=== PATIENT | female | born 1995 | race Caucasian/White ===

== ENCOUNTER → 2018-01-07 | Outpatient (CLI) | payer BC | END | disposition home or self-care (01) | LOC: LAB SHORT 12:45 → LAB 12:45 | PROVIDERS: Nurse Practitioner | DX: Z01.419 Encounter for gynecological examination (general) (routine) without abnormal findings (principal) | CPT/HCPCS: G0145 ==

== ENCOUNTER → 2020-01-22 | Outpatient (CLI) | payer BC, OTHER | END | disposition home or self-care (01) | LOC: LAB 16:19 → LAB SHORT 16:19 | DX: Z34.03 Encounter for supervision of normal first pregnancy, third trimester (principal); Z3A.35 35 weeks gestation of pregnancy | CPT/HCPCS: 87081; 87653 ==

== ENCOUNTER 2020-03-13 16:20 | Emergency (ER) | payer BC, OTHER ==
[~2020-03-13 16:20] MED LIST: PRENATAL TABLE1 EAC2 PO
[2020-03-13 16:46] LABS: BASOPHILS ABSOLUTE AUTO 0.09 K/mm3 (0.00-0.23); BASOPHILS PERCENT AUTO 1 % (0-2); EOSINOPHILS ABSOLUTE AUTO 0.08 K/mm3 (0.00-0.68); EOSINOPHILS PERCENT AUTO 1 % (0-6); Hematocrit 33.9 % (33.0-51.0); Hemoglobin 9.9 g/dL (11.5-16.0); IMMATURE GRAN ABSOLUTE AUTO 0.06 K/mm3 (0.00-0.10); IMMATURE GRAN PERCENT AUTO 0 % (0-1); LYMPHOCYTES ABSOLUTE AUTO 5.38 K/mm3 (0.84-5.20); LYMPHOCYTES PERCENT AUTO 34 % (21-46); MONOCYTES ABSOLUTE AUTO 1.31 K/mm3 (0.16-1.47); MONOCYTES PERCENT AUTO 8 % (4-13); Mean Corpuscular HGB 28.5 pg (26.0-34.0); Mean Corpuscular HGB Conc 29.2 g/dL (31.5-36.5); Mean Corpuscular Volume 98 fL (80-100); Mean Platelet Volume 8.7 fL (9.1-12.4); NEUTROPHILS PERCENT AUTO 56 % (41-73); Platelet Count 551 K/mm3 (150-400); RDW Coefficient Variation 12.7 % (11.7-14.2); RDW Standard Deviation 45.5 fL (35.1-46.3); Red Blood Cell Count 3.47 M/mm3 (3.80-5.20); White Blood Cell Count 15.82 K/mm3 (4.00-11.30)
[2020-03-13 16:55] LABS: Calcium, Ionized (POC) 1.07 mmol/L (1.10-1.46); Chloride (POC) 109 mmol/L (98-108); Creatinine (POC) 0.6 mg/dL (0.6-1.0); Glucose (ISTAT POC) 69 mg/dL (70-99); Hemoglobin (POC) 10.5 g/dL (12.0-16.0); Potassium (POC) 4.9 mmol/L (3.5-5.5); Sodium (POC) 139 mmol/L (135-148); Total CO2 (POC) 17 mmol/L (21-32)
[2020-03-13 16:58] LABS: PCO2 Arterial 33.7 mmHg (35-45); PO2 Arterial 188 mmHg (80-100); pH Blood Arterial 7.28 (7.35-7.45)
[2020-03-13 17:12] LABS: Alanine Aminotransfer (ALT/SGP 22 U/L (12-78); Albumin, Blood 3.6 g/dL (3.4-5.0); Alk Phos 137 U/L (50-136); Anion Gap 14 mmol/L (6-16); Aspartate Aminotrans (AST/SGOT 21 U/L (12-37); Bilirubin, Total 0.2 mg/dL (0.1-1.0); Blood Urea Nitrogen 11 mg/dL (8-24); Bun/Creatinine Ratio 15.2 (12.0-20.0); CO2, Blood 20 mmol/L (21-32); Calcium, Blood 9.1 mg/dL (8.5-10.1); Chloride, Blood 115 mmol/L (98-108); Creatinine, Blood 0.72 mg/dL (0.40-1.00); Globulin, Blood 3.6 g/dL (2.2-4.0); Glomerular Filtration Rate >60 (60-); Glucose, Blood 85 mg/dL (70-99); Potassium, Blood 4.8 mmol/L (3.5-5.5); Sodium, Blood 149 mmol/L (136-145); Total Protein, Blood 7.2 g/dL (6.4-8.2)
== END 2020-03-13 17:53 | disposition short-term general hospital (02) ==
LOC: ER 16:20
PROVIDERS: Emergency Medicine
DX: O99.355 Diseases of the nervous system complicating the puerperium (principal); G40.901 Epilepsy, unspecified, not intractable, with status epilepticus; I82.90 Acute embolism and thrombosis of unspecified vein; R06.03 Acute respiratory distress; Z91.013 Allergy to seafood
CPT/HCPCS: 31500; 36600; 51702; 70450; 80047; 80053; 82803; 82947; 85014; 85025; 85379; 94002; 94770; 96365-59; 96368; 96375-59; 99291-25; J0330; J1644; J1953; J2250; J2704; J3010; J3475; J7060

== ENCOUNTER 2020-03-22 19:16 | Emergency (ER) | payer BC, OTHER ==
[~2020-03-22] VITALS: Ht 167.6 cm; Wt 72.6 kg
[2020-03-22 20:13] LABS: BASOPHILS ABSOLUTE AUTO 0.07 K/mm3 (0.00-0.23); BASOPHILS PERCENT AUTO 1 % (0-2); EOSINOPHILS PERCENT AUTO 1 % (0-6); Hematocrit 28.7 % (33.0-51.0); Hemoglobin 8.8 g/dL (11.5-16.0); IMMATURE GRAN ABSOLUTE AUTO 0.03 K/mm3 (0.00-0.10); IMMATURE GRAN PERCENT AUTO 0 % (0-1); LYMPHOCYTES PERCENT AUTO 40 % (21-46); MONOCYTES ABSOLUTE AUTO 0.73 K/mm3 (0.16-1.47); MONOCYTES PERCENT AUTO 9 % (4-13); Mean Corpuscular HGB 27.4 pg (26.0-34.0); Mean Corpuscular HGB Conc 30.7 g/dL (31.5-36.5); Mean Corpuscular Volume 89 fL (80-100); Mean Platelet Volume 8.8 fL (9.1-12.4); NEUTROPHILS ABSOLUTE AUTO 4.01 K/mm3 (1.96-9.15); NEUTROPHILS PERCENT AUTO 49 % (41-73); Platelet Count 462 K/mm3 (150-400); RDW Coefficient Variation 13.2 % (11.7-14.2); RDW Standard Deviation 43.5 fL (35.1-46.3); Red Blood Cell Count 3.21 M/mm3 (3.80-5.20); White Blood Cell Count 8.24 K/mm3 (4.00-11.30)
[2020-03-22 20:29] LABS: International Normalized Ratio 1.16; Prothrombin Time Results 12.3 Sec (9.7-11.5)
[2020-03-22 20:38] LABS: Alanine Aminotransfer (ALT/SGP 37 U/L (12-78); Albumin, Blood 3.5 g/dL (3.4-5.0); Albumin/Globulin Ratio 1.1 (0.8-1.8); Alk Phos 121 U/L (50-136); Anion Gap 9 mmol/L (6-16); Aspartate Aminotrans (AST/SGOT 17 U/L (12-37); Bilirubin, Total 0.1 mg/dL (0.1-1.0); Blood Urea Nitrogen 11 mg/dL (8-24); Bun/Creatinine Ratio 16.9 (12.0-20.0); CO2, Blood 26 mmol/L (21-32); Calcium, Blood 8.6 mg/dL (8.5-10.1); Chloride, Blood 105 mmol/L (98-108); Creatinine, Blood 0.65 mg/dL (0.40-1.00); Globulin, Blood 3.2 g/dL (2.2-4.0); Glomerular Filtration Rate >60 (60-); Glucose, Blood 90 mg/dL (70-99); Potassium, Blood 3.7 mmol/L (3.5-5.5); Sodium, Blood 140 mmol/L (136-145); Total Protein, Blood 6.7 g/dL (6.4-8.2)
[2020-03-22] MEDS ORDERED: LEVETIRACETAM PO (20:50)
[2020-03-22] MEDS ORDERED: BUTALB-ACETAMI1 EAC5 PO (20:56)
[2020-03-22] MEDS ORDERED: DOCU100 PO (20:57)
[2020-03-22] MEDS ORDERED: XARELTO15 MG PO (20:57)
[2020-03-22] MEDS ORDERED: BISA10S PR (20:57)
== END 2020-03-22 22:33 | disposition short-term general hospital (02) ==
LOC: ER 19:16
PROVIDERS: Emergency Medicine
DX: G08 Intracranial and intraspinal phlebitis and thrombophlebitis (principal); Z79.02 Long term (current) use of antithrombotics/antiplatelets; Z79.899 Other long term (current) drug therapy; Z91.013 Allergy to seafood; Z86.73 Personal history of transient ischemic attack (TIA), and cerebral infarction without residual deficits
CPT/HCPCS: 70470; 80053; 83735; 85025; 85610; 85730; 93005; 93010; 99285-25; Q9967; U0003

== ENCOUNTER → 2021-02-13 | Outpatient (CLI) | payer OTHER ==
[~2021-02-13] MED LIST changes: +BISA10S PR; +BUTALB-ACETAMI1 EAC5 PO; +DOCU100 PO; +LEVETIRACETAM PO; +XARELTO15 MG PO
[2021-02-15 20:18] LABS: CORONAVIRUS (COVID19) CSH-NRL Positive (Negative)
== END | disposition home or self-care (01) ==
LOC: LAB 15:12 → LAB SHORT 15:12
PROVIDERS: General Practice
DX: U07.1 COVID-19 (principal); J06.9 Acute upper respiratory infection, unspecified
CPT/HCPCS: 87081; U0003

== ENCOUNTER 2022-03-29 06:00 | Inpatient (IN) | payer OTHER ==
[~2022-03-29] VITALS: Ht 167.6 cm; Wt 85.5 kg
[2022-03-29] MEDS ORDERED: ENOX60I SC (06:31)
[2022-03-29] MEDS ORDERED: PRENATAL TABLE1 EAC2 PO (06:32)
[2022-03-29 06:45] LABS: BASOPHILS ABSOLUTE AUTO 0.07 K/mm3 (0.00-0.23); BASOPHILS PERCENT AUTO 0 % (0-2); EOSINOPHILS ABSOLUTE AUTO 0.08 K/mm3 (0.00-0.68); EOSINOPHILS PERCENT AUTO 1 % (0-6); Hematocrit 36.7 % (33.0-51.0); Hemoglobin 12.7 g/dL (11.5-16.0); IMMATURE GRAN ABSOLUTE AUTO 0.16 K/mm3 (0.00-0.10); IMMATURE GRAN PERCENT AUTO 1 % (0-1); LYMPHOCYTES ABSOLUTE AUTO 4.16 K/mm3 (0.84-5.20); LYMPHOCYTES PERCENT AUTO 27 % (21-46); MONOCYTES PERCENT AUTO 10 % (4-13); Mean Corpuscular HGB 31.6 pg (26.0-34.0); Mean Corpuscular HGB Conc 34.6 g/dL (31.5-36.5); Mean Corpuscular Volume 91 fL (80-100); Mean Platelet Volume 9.8 fL (9.1-12.4); NEUTROPHILS PERCENT AUTO 62 % (41-73); Platelet Count 334 K/mm3 (150-400); RDW Coefficient Variation 13.5 % (11.7-14.2); Red Blood Cell Count 4.02 M/mm3 (3.80-5.20); White Blood Cell Count 15.57 K/mm3 (4.00-11.30)
[2022-03-30 07:01] LABS: BASOPHILS ABSOLUTE AUTO 0.06 K/mm3 (0.00-0.23); BASOPHILS PERCENT AUTO 0 % (0-2); EOSINOPHILS ABSOLUTE AUTO 0.06 K/mm3 (0.00-0.68); EOSINOPHILS PERCENT AUTO 0 % (0-6); Hematocrit 33.2 % (33.0-51.0); Hemoglobin 11.5 g/dL (11.5-16.0); IMMATURE GRAN ABSOLUTE AUTO 0.12 K/mm3 (0.00-0.10); IMMATURE GRAN PERCENT AUTO 1 % (0-1); LYMPHOCYTES ABSOLUTE AUTO 3.31 K/mm3 (0.84-5.20); LYMPHOCYTES PERCENT AUTO 16 % (21-46); MONOCYTES PERCENT AUTO 10 % (4-13); Mean Corpuscular HGB 31.6 pg (26.0-34.0); Mean Corpuscular HGB Conc 34.6 g/dL (31.5-36.5); Mean Corpuscular Volume 91 fL (80-100); NEUTROPHILS ABSOLUTE AUTO 14.83 K/mm3 (1.96-9.15); NEUTROPHILS PERCENT AUTO 72 % (41-73); Platelet Count 257 K/mm3 (150-400); RDW Coefficient Variation 13.5 % (11.7-14.2); RDW Standard Deviation 44.7 fL (35.1-46.3); Red Blood Cell Count 3.64 M/mm3 (3.80-5.20); White Blood Cell Count 20.48 K/mm3 (4.00-11.30)
--- NOTE | 2022-03-30 18:10 | NUR ---
K-PAD GIVEN FOR BACK PAIN
[2022-03-31] MEDS ORDERED: ASPIR 8181 M1 PO (07:25)
--- NOTE | 2022-03-31 08:12 | NUR ---
PT WOULD LIKE TO GO HOME TODAY, WEARS PAS STOCKINGS WHEN IN BED, CURRENTLY UP AMB IN ROOM, SO IS PACKING UP ROOM FOR GOING HOME. THEY ARE AWARE THAT A DISCHARGE ORDER IS NEEDED ON MOM AND BABY AND WAITING FOR THEM. PT GAVE HERSELF THE LOVENOX INJECTION APPROPERIATELY, PT ANTICIPATES BEING ON LOVENOX FOR THE NEXT 6 WEEKS BEFORE GOING BACK TO HER NORMAL MEDICATIONS.
--- NOTE | 2022-03-31 09:19 | NUR ---
dc instructions gone over with pt, waiting for dc order and can dc home, dr yepez here seeing baby
--- NOTE | 2022-03-31 10:00 | NUR ---
P/C TO DR GUTIERRES CONFIRMED PT DISCHARGE MEDICATIONS KEPRA 1000MG BID LOVENOX 60 BID VITAMINS PT TO FOLLOW UP IN OFFICE 2 & 6 WEEKS
[2022-03-31] MEDS ORDERED: ENOX60I (10:01)
--- NOTE | 2022-03-31 10:27 | NUR ---
DISCHARGE TO HOME WITH NB
== END 2022-03-31 10:25 | disposition home or self-care (01) | DRG 806 ==
LOC: OBS 06:00 → BC 06:03 → OBS 06:08 → BC 06:08
PROVIDERS: ADMIT Obstetrics & Gynecology
PROC: 10E0XZZ Delivery of Products of Conception, External Approach (ICD-10-PCS; principal; 2022-03-31)
PROC: 10907ZC Drainage of Amniotic Fluid, Therapeutic from Products of Conception, Via Natural or Artificial Opening (ICD-10-PCS; 2022-03-31)
PROC: 3E033VJ Introduction of Other Hormone into Peripheral Vein, Percutaneous Approach (ICD-10-PCS; 2022-03-31)
PROC: 0HQ9XZZ Repair Perineum Skin, External Approach (ICD-10-PCS; 2022-03-31)
DX: O48.0 Post-term pregnancy (principal); O99.355 Diseases of the nervous system complicating the puerperium; Z37.0 Single live birth; O66.0 Obstructed labor due to shoulder dystocia; G40.909 Epilepsy, unspecified, not intractable, without status epilepticus; O70.0 First degree perineal laceration during delivery; Z91.013 Allergy to seafood; Z3A.40 40 weeks gestation of pregnancy
CPT/HCPCS: 36415; 51702; 85025; 86850; 86900; 86901; 86923; A9270; J1650; J1720; J2210; J2405; J2590; J3010; J7120

== ENCOUNTER 2022-04-14 23:06 | Emergency (ER) | payer OTHER ==
[~2022-04-14] VITALS: Ht 167.6 cm; Wt 78.5 kg
[~2022-04-14 23:06] MED LIST changes: +ASPIR 8181 M1 PO; +ENOX60I SC
[2022-04-15 00:12] LABS: BASOPHILS PERCENT AUTO 1 % (0-2); EOSINOPHILS ABSOLUTE AUTO 0.13 K/mm3 (0.00-0.68); EOSINOPHILS PERCENT AUTO 1 % (0-6); Hematocrit 33.3 % (33.0-51.0); Hemoglobin 11.2 g/dL (11.5-16.0); IMMATURE GRAN ABSOLUTE AUTO 0.04 K/mm3 (0.00-0.10); IMMATURE GRAN PERCENT AUTO 0 % (0-1); LYMPHOCYTES PERCENT AUTO 48 % (21-46); MONOCYTES ABSOLUTE AUTO 0.65 K/mm3 (0.16-1.47); MONOCYTES PERCENT AUTO 7 % (4-13); Mean Corpuscular HGB 31.5 pg (26.0-34.0); Mean Corpuscular HGB Conc 33.6 g/dL (31.5-36.5); Mean Corpuscular Volume 94 fL (80-100); Mean Platelet Volume 8.8 fL (9.1-12.4); NEUTROPHILS ABSOLUTE AUTO 4.18 K/mm3 (1.96-9.15); NEUTROPHILS PERCENT AUTO 43 % (41-73); Platelet Count 500 K/mm3 (150-400); RDW Coefficient Variation 12.6 % (11.7-14.2); RDW Standard Deviation 43.8 fL (35.1-46.3); Red Blood Cell Count 3.56 M/mm3 (3.80-5.20)
[2022-04-15 00:24] LABS: Albumin, Blood 3.5 g/dL (3.4-5.0); Albumin/Globulin Ratio 1.1 (0.8-1.8); Bilirubin, Total 0.1 mg/dL (0.1-1.0); Bun/Creatinine Ratio 22.6 (12.0-20.0); Calcium, Blood 8.7 mg/dL (8.5-10.1); Creatinine, Blood 0.58 mg/dL (0.40-1.00); Globulin, Blood 3.3 g/dL (2.2-4.0); Potassium, Blood 3.4 mmol/L (3.5-5.5); Total Protein, Blood 6.8 g/dL (6.4-8.2)
[2022-04-15] MEDS ORDERED: METO10 PO (00:35)
== END 2022-04-15 00:45 | disposition home or self-care (01) ==
LOC: ER 23:06
PROVIDERS: Student in an Organized Health Care Education/Training Program
DX: O90.89 Other complications of the puerperium, not elsewhere classified (principal); R51.9 Headache, unspecified; Z91.013 Allergy to seafood; Z79.899 Other long term (current) drug therapy
CPT/HCPCS: 36415; 70470; 80053; 85025; J1885; J2765; J7030; Q9967

== ENCOUNTER 2022-05-12 09:33 | Observation (INO) | payer OTHER ==
[~2022-05-12] VITALS: Ht 167.6 cm; Wt 77.1 kg
[~2022-05-12 09:33] MED LIST changes: +METO10 PO
[2022-05-12 10:25] LABS: BASOPHILS ABSOLUTE AUTO 0.04 K/mm3 (0.00-0.23); BASOPHILS PERCENT AUTO 0 % (0-2); EOSINOPHILS ABSOLUTE AUTO 0.04 K/mm3 (0.00-0.68); EOSINOPHILS PERCENT AUTO 0 % (0-6); Hematocrit 32.5 % (33.0-51.0); Hemoglobin 11.1 g/dL (11.5-16.0); IMMATURE GRAN ABSOLUTE AUTO 0.02 K/mm3 (0.00-0.10); IMMATURE GRAN PERCENT AUTO 0 % (0-1); LYMPHOCYTES ABSOLUTE AUTO 1.55 K/mm3 (0.84-5.20); LYMPHOCYTES PERCENT AUTO 17 % (21-46); MONOCYTES ABSOLUTE AUTO 0.68 K/mm3 (0.16-1.47); MONOCYTES PERCENT AUTO 8 % (4-13); Mean Corpuscular HGB 30.8 pg (26.0-34.0); Mean Corpuscular HGB Conc 34.2 g/dL (31.5-36.5); Mean Corpuscular Volume 90 fL (80-100); Mean Platelet Volume 8.7 fL (9.1-12.4); NEUTROPHILS PERCENT AUTO 74 % (41-73); Platelet Count 372 K/mm3 (150-400); RDW Coefficient Variation 11.9 % (11.7-14.2); RDW Standard Deviation 39.7 fL (35.1-46.3); White Blood Cell Count 9.03 K/mm3 (4.00-11.30)
[2022-05-12 10:35] LABS: Albumin/Globulin Ratio 1.2 (0.8-1.8); Bilirubin, Total 0.3 mg/dL (0.1-1.0); Bun/Creatinine Ratio 16.7 (12.0-20.0); Calcium, Blood 8.5 mg/dL (8.5-10.1); Creatinine, Blood 0.66 mg/dL (0.40-1.00); Globulin, Blood 3.4 g/dL (2.2-4.0); Potassium, Blood 3.7 mmol/L (3.5-5.5); Total Protein, Blood 7.4 g/dL (6.4-8.2)
[2022-05-12 13:56] LABS: Hematocrit 27.1 % (33.0-51.0); Hemoglobin 9.3 g/dL (11.5-16.0); Mean Corpuscular HGB 30.9 pg (26.0-34.0); Mean Corpuscular HGB Conc 34.3 g/dL (31.5-36.5); Mean Corpuscular Volume 90 fL (80-100); Mean Platelet Volume 8.8 fL (9.1-12.4); Platelet Count 334 K/mm3 (150-400); RDW Standard Deviation 39.8 fL (35.1-46.3); Red Blood Cell Count 3.01 M/mm3 (3.80-5.20); White Blood Cell Count 9.59 K/mm3 (4.00-11.30)
--- NOTE | 2022-05-12 17:44 | NUR ---
PATIENT JUST CAME UP FROM ER TODAY AT 1730. UTERINE HEMORRHAGE FROM IUD PATIENT IS A&OX4. VS ARE WNL AND IS ON RA. PATIENT REPORTS A 4/10 PAIN BUT REFUSES IV PAIN MEDICATION AT THIS TIME. SHE HAS A STRAIGHT CATH PLACED IN HER VAGINA WITH BALLOON INFLATED WITH 15 ML TO HOLD PRESSURE WHERE THE BLEEDING IS. SHE IS STILL HAVING MODERATE AMOUNT OF BLOOD ON HER DEPENDS. DENIES DIZZINESS OR LIGHTHEADEDNESS AT THIS TIME. SHE IS TOLERATING PO INTAKE AND VOIDING. SHE IS LAYING IN BED WITH CALL LIGHT IN REACH.
--- NOTE | 2022-05-13 00:24 | NUR ---
EMPTIED COLLECTION BAG @0000, 20ML SANGUINEOUS OUT.
--- NOTE | 2022-05-13 05:56 | NUR ---
SHIFT SUMMARY PT A&OX4, PLEASANT AND COOPERATIVE WITH CARE. AT BEGINNING OF SHIFT DR. FIORE INFLATED CATHETER BALLOON FROM 15ML TO 35ML. COLLECTION BAG EMPTIED TWICE, TOTALING 70ML SANGUINEOUS. SCANT DRAINAGE FROM VAGINAL AREA STILL, REQUIRING ATTENDS CHANGE TWICE. MEDICATED FOR PAIN TWICE DURING SHIFT. TOLERATING PO INTAKE. SBA TO HELP MANAGE CORDS/LINES. CALLS APPROPRIATELY, CALL LIGHT WITHIN REACH.
[2022-05-13 07:04] LABS: BASOPHILS ABSOLUTE AUTO 0.03 K/mm3 (0.00-0.23); BASOPHILS PERCENT AUTO 0 % (0-2); EOSINOPHILS ABSOLUTE AUTO 0.03 K/mm3 (0.00-0.68); EOSINOPHILS PERCENT AUTO 0 % (0-6); Hematocrit 21.9 % (33.0-51.0); Hemoglobin 7.6 g/dL (11.5-16.0); IMMATURE GRAN ABSOLUTE AUTO 0.02 K/mm3 (0.00-0.10); IMMATURE GRAN PERCENT AUTO 0 % (0-1); LYMPHOCYTES ABSOLUTE AUTO 2.65 K/mm3 (0.84-5.20); LYMPHOCYTES PERCENT AUTO 30 % (21-46); MONOCYTES ABSOLUTE AUTO 0.98 K/mm3 (0.16-1.47); MONOCYTES PERCENT AUTO 11 % (4-13); Mean Corpuscular HGB 31.3 pg (26.0-34.0); Mean Corpuscular HGB Conc 34.7 g/dL (31.5-36.5); Mean Corpuscular Volume 90 fL (80-100); Mean Platelet Volume 8.4 fL (9.1-12.4); NEUTROPHILS ABSOLUTE AUTO 5.01 K/mm3 (1.96-9.15); NEUTROPHILS PERCENT AUTO 58 % (41-73); Platelet Count 285 K/mm3 (150-400); RDW Coefficient Variation 12.2 % (11.7-14.2); RDW Standard Deviation 39.3 fL (35.1-46.3); Red Blood Cell Count 2.43 M/mm3 (3.80-5.20); White Blood Cell Count 8.72 K/mm3 (4.00-11.30)
--- NOTE | 2022-05-13 17:13 | NUR ---
SHIFT SUMMARY PT A&OX4, VSS/RA, MIN PO/IV RAC SL, VOIDING WELL, AMB INDEPENDENTLY IN ROOM/HALLWAY, SHOWERED TODAY, PAIN MANAGED WELL PERC 5 MG, X1. CLIFTON IN UTERUS WITH 40 MLS SANGUINOUS OUT, ATTENDS ON WITH SCANT DRAINAGE-CHANGED 1X TODAY, LITTLE TO NO OUTPUT THIS PM. WILL REPORT TO ONCOMING NOC RN.
--- NOTE | 2022-05-14 05:07 | NUR ---
SHIFT SUMMARY PT A&OX4, PLEASANT AND COOPERATIVE. NO ACUTE CHANGES, VSS. PT DID NOT NEED PAIN COVERAGE THIS SHIFT. INDEPENDENT IN ROOM/BATHROOM. CLIFTON IN UTERUS HAD 25ML SANGUINOUS. SCANT DRAINAGE IN ATTENDS. CALLS APPROPRIATELY, CALL LIGHT WITHIN REACH.
[2022-05-14 07:39] LABS: BASOPHILS ABSOLUTE AUTO 0.04 K/mm3 (0.00-0.23); BASOPHILS PERCENT AUTO 1 % (0-2); EOSINOPHILS ABSOLUTE AUTO 0.07 K/mm3 (0.00-0.68); EOSINOPHILS PERCENT AUTO 1 % (0-6); Hematocrit 22.7 % (33.0-51.0); Hemoglobin 7.6 g/dL (11.5-16.0); IMMATURE GRAN ABSOLUTE AUTO 0.02 K/mm3 (0.00-0.10); IMMATURE GRAN PERCENT AUTO 0 % (0-1); LYMPHOCYTES ABSOLUTE AUTO 2.36 K/mm3 (0.84-5.20); LYMPHOCYTES PERCENT AUTO 27 % (21-46); MONOCYTES ABSOLUTE AUTO 0.79 K/mm3 (0.16-1.47); MONOCYTES PERCENT AUTO 9 % (4-13); Mean Corpuscular HGB 30.4 pg (26.0-34.0); Mean Corpuscular HGB Conc 33.5 g/dL (31.5-36.5); Mean Corpuscular Volume 91 fL (80-100); Mean Platelet Volume 8.8 fL (9.1-12.4); NEUTROPHILS ABSOLUTE AUTO 5.51 K/mm3 (1.96-9.15); NEUTROPHILS PERCENT AUTO 63 % (41-73); Platelet Count 318 K/mm3 (150-400); RDW Coefficient Variation 12.4 % (11.7-14.2); RDW Standard Deviation 40.6 fL (35.1-46.3); White Blood Cell Count 8.79 K/mm3 (4.00-11.30)
--- NOTE | 2022-05-14 14:30 | NUR ---
DISCHARGE SUMMARY PT A&OX4, VSS/RA, MIN PO, VOIDING WELL, DENIES PAIN, AMB INDEPENDENTLY, IV DC'D. PT REP PAD WITH SMALL AMT BLOOD. DC INS PROVIDED. PT REP UNDERSTANDING DC INS. LEFT FLOOR WITH TO GO HOME, WITH ALL PERSONAL POSSESSIONS, INCLUDING DC INS.
== END 2022-05-14 14:15 | disposition home or self-care (01) ==
LOC: ER 09:33 → ERHOLD 09:34 → SURS 17:40
PROVIDERS: Physician Assistant; Student in an Organized Health Care Education/Training Program; ADMIT Obstetrics & Gynecology
DX: T83.83XA Hemorrhage due to genitourinary prosthetic devices, implants and grafts, initial encounter (principal); Y82.8 Other medical devices associated with adverse incidents; N93.9 Abnormal uterine and vaginal bleeding, unspecified; Z91.013 Allergy to seafood; Z79.01 Long term (current) use of anticoagulants
CPT/HCPCS: 36415; 57180; 74177; 76830; 76856; 80053; 84703; 85025; 85027; 96361; 96372; 96374-59; 96375-59; 96376; 96376-59; 99284-25; A9270; G0378; J1170; J1650; J2405; J3010; J7120; Q9967

== ENCOUNTER 2022-05-16 06:03 | Observation (INO) | payer OTHER ==
[~2022-05-16] VITALS: Ht 170.2 cm; Wt 77.1 kg
[2022-05-16 06:25] LABS: Calcium, Ionized (POC) 1.05 mmol/L (1.10-1.46); Chloride (POC) 103 mmol/L (98-108); Creatinine (POC) 0.6 mg/dL (0.6-1.0); Glucose (ISTAT POC) 109 mg/dL (70-99); Hemoglobin (POC) 6.8 g/dL (12.0-16.0); Potassium (POC) 3.4 mmol/L (3.5-5.5); Sodium (POC) 139 mmol/L (135-148); Total CO2 (POC) 25 mmol/L (21-32)
[2022-05-16 06:25] LABS: BASOPHILS ABSOLUTE AUTO 0.06 K/mm3 (0.00-0.23); BASOPHILS PERCENT AUTO 1 % (0-2); EOSINOPHILS ABSOLUTE AUTO 0.23 K/mm3 (0.00-0.68); EOSINOPHILS PERCENT AUTO 3 % (0-6); Hematocrit 21.6 % (33.0-51.0); Hemoglobin 7.4 g/dL (11.5-16.0); IMMATURE GRAN ABSOLUTE AUTO 0.03 K/mm3 (0.00-0.10); IMMATURE GRAN PERCENT AUTO 0 % (0-1); LYMPHOCYTES ABSOLUTE AUTO 3.12 K/mm3 (0.84-5.20); LYMPHOCYTES PERCENT AUTO 36 % (21-46); MONOCYTES ABSOLUTE AUTO 0.63 K/mm3 (0.16-1.47); MONOCYTES PERCENT AUTO 7 % (4-13); Mean Corpuscular HGB 31.2 pg (26.0-34.0); Mean Corpuscular HGB Conc 34.3 g/dL (31.5-36.5); Mean Corpuscular Volume 91 fL (80-100); Mean Platelet Volume 8.9 fL (9.1-12.4); NEUTROPHILS ABSOLUTE AUTO 4.63 K/mm3 (1.96-9.15); NEUTROPHILS PERCENT AUTO 53 % (41-73); Platelet Count 429 K/mm3 (150-400); RDW Coefficient Variation 12.9 % (11.7-14.2); RDW Standard Deviation 41.2 fL (35.1-46.3); Red Blood Cell Count 2.37 M/mm3 (3.80-5.20)
[2022-05-16 06:55] LABS: Bun/Creatinine Ratio 10.4 (12.0-20.0); Calcium, Blood 8.3 mg/dL (8.5-10.1); Creatinine, Blood 0.67 mg/dL (0.40-1.00); Potassium, Blood 3.5 mmol/L (3.5-5.5)
--- NOTE | 2022-05-16 09:01 | NUR ---
PRE PROCEDURE: PT ARRIVED TO DS VIA GURNEY FROM ER. PT HAD BLOOD PRODUCTS INFUSING AT TIME OF ARRIVAL. PT AWAKE AND ALERT, SPOUSE AND MOTHER AT BEDSIDE. NEW IV ESTABLISHED FOR SEDATION. VITALS STABLE IN DS. ALL BLOOD PRODUCTS TRANSFERRED TO DR. GARCÍA ANESTHESIA. NEW TAGS FOR 3 UNITS GIVEN TO OR NURSE, DAMIAN. LAB DRAWN FOR CBC PRIOR TO OR. ALL CONSENTS SIGNED AND PT SEEN BY SURGEON AND ANESTHESIA.
--- NOTE | 2022-05-16 09:04 | NUR ---
Patient up to Ambulate independently. Gait steady. History, Chart, Medications and Allergies reviewed before start of procedure.Pre-Op teaching done. Pt verbalizes understanding. Lungs clear T/O to Auscultation.
[2022-05-16 11:12] LABS: BASOPHILS ABSOLUTE AUTO 0.04 K/mm3 (0.00-0.23); BASOPHILS PERCENT AUTO 1 % (0-2); EOSINOPHILS ABSOLUTE AUTO 0.17 K/mm3 (0.00-0.68); EOSINOPHILS PERCENT AUTO 2 % (0-6); Hematocrit 20.8 % (33.0-51.0); IMMATURE GRAN ABSOLUTE AUTO 0.04 K/mm3 (0.00-0.10); IMMATURE GRAN PERCENT AUTO 1 % (0-1); LYMPHOCYTES ABSOLUTE AUTO 2.04 K/mm3 (0.84-5.20); LYMPHOCYTES PERCENT AUTO 27 % (21-46); MONOCYTES ABSOLUTE AUTO 0.51 K/mm3 (0.16-1.47); MONOCYTES PERCENT AUTO 7 % (4-13); Mean Corpuscular HGB 31.4 pg (26.0-34.0); Mean Corpuscular HGB Conc 33.7 g/dL (31.5-36.5); Mean Corpuscular Volume 93 fL (80-100); Mean Platelet Volume 9.2 fL (9.1-12.4); NEUTROPHILS ABSOLUTE AUTO 4.76 K/mm3 (1.96-9.15); NEUTROPHILS PERCENT AUTO 63 % (41-73); Platelet Count 363 K/mm3 (150-400); RDW Coefficient Variation 12.8 % (11.7-14.2); RDW Standard Deviation 42.4 fL (35.1-46.3); Red Blood Cell Count 2.23 M/mm3 (3.80-5.20); White Blood Cell Count 7.56 K/mm3 (4.00-11.30)
--- NOTE | 2022-05-16 12:00 | NUR ---
PTin day surgery awaiting a surgical bed, pt pain 8/10 abd no bleeding scant redblood on priscilla pad golf ball size. 10cc water taken from uterine balloon per dr smith verbal order. 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
[2022-05-16 12:13] LABS: BASOPHILS ABSOLUTE AUTO 0.04 K/mm3 (0.00-0.23); BASOPHILS PERCENT AUTO 0 % (0-2); EOSINOPHILS ABSOLUTE AUTO 0.09 K/mm3 (0.00-0.68); EOSINOPHILS PERCENT AUTO 1 % (0-6); Hematocrit 25.2 % (33.0-51.0); Hemoglobin 8.7 g/dL (11.5-16.0); IMMATURE GRAN ABSOLUTE AUTO 0.07 K/mm3 (0.00-0.10); IMMATURE GRAN PERCENT AUTO 1 % (0-1); LYMPHOCYTES ABSOLUTE AUTO 1.28 K/mm3 (0.84-5.20); LYMPHOCYTES PERCENT AUTO 13 % (21-46); MONOCYTES ABSOLUTE AUTO 0.28 K/mm3 (0.16-1.47); MONOCYTES PERCENT AUTO 3 % (4-13); Mean Corpuscular HGB 30.7 pg (26.0-34.0); Mean Corpuscular HGB Conc 34.5 g/dL (31.5-36.5); Mean Corpuscular Volume 89 fL (80-100); Mean Platelet Volume 8.9 fL (9.1-12.4); NEUTROPHILS ABSOLUTE AUTO 7.94 K/mm3 (1.96-9.15); NEUTROPHILS PERCENT AUTO 82 % (41-73); Platelet Count 333 K/mm3 (150-400); RDW Coefficient Variation 13.3 % (11.7-14.2); RDW Standard Deviation 42.8 fL (35.1-46.3); Red Blood Cell Count 2.83 M/mm3 (3.80-5.20)
--- NOTE | 2022-05-16 13:35 | NUR ---
REPORT FROM ANTONIO BRIGGS RN. PT RESTING COMFORATBLY IN BED, AT BEDSIDE. PT TOLERATING PO FLUIDS AND JELLO. PT IN DAY SURGERY WAITING FOR BED ON FLOOR. PT HAS BRUISING ACROSS ABDOMEN FROM LOVENOX SHOTS. PT HAS A URINARY CATHETER DRAINING CLEAR, YELLOW URINE. PT ALSO HAS A UTERINE CATHETER WITH SCANT AMOUNT OF SANGUIN IN THE TUBING. PT HAS A PERIPAD BETWEEN LEGS WITH NO SPOTTING OR DISCHARGE PRESENT, PAD IS CLEAN AND DRY.
--- NOTE | 2022-05-16 14:15 | NUR ---
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 UTERINE CLIFTON WITH SCANT DRAINAGE DIME SIZE BRIGHTRED DRAINAGE ON PAD MESSAGE SENT TO DR GUTIERRES FOR PT KEPPERA 1000MG BID TO BE ORDERED FOR HOSPITAL STAY. PT HAD JELLO AND SOME WATER TOLERATED WELL.
--- NOTE | 2022-05-16 14:41 | NUR ---
1420 REPORT TO SURGICAL NURSE PT STABLE WITH GOOD PAIN CONTROL.
--- NOTE | 2022-05-16 18:22 | NUR ---
10ML FLUID REMOVED FROM BALLOON IN UTERINE CLIFTON AT [address] GUTIERRES VERBAL ORDER. SMALL AMT DARK RED DRAINAGE PRESENT IN COLLECTION BAG. URINARY CATHETER PATENT DRAINING CLEAR YELLOW URINE. BOTH TO REMAIN IN PLACE THROUGH NIGHT. DR GUTIERRES WILL SEE PT IN AM TO ASSESS FOR DC.
--- NOTE | 2022-05-17 07:29 | NUR ---
POD 1 S/P D&C AND ABLATION. PT VSS T/O NIGHT. UTERINE CLIFTON IN PLACE W/APPX 50ML SANG DRNG W/SCANT SPOTTING ON MICHELE PAD. ABD SOFT TO PALP. PT REP MILD ABD CRAMPING, PAIN MGD W/TORADOL AND WORSTED WINDER W/REP RELIEF. PT MIN PO, DENIED N/V. CLIFTON PATANT DRNG CLEAR URINE.
[2022-05-17 07:59] LABS: BASOPHILS ABSOLUTE AUTO 0.03 K/mm3 (0.00-0.23); BASOPHILS PERCENT AUTO 0 % (0-2); EOSINOPHILS ABSOLUTE AUTO 0.12 K/mm3 (0.00-0.68); EOSINOPHILS PERCENT AUTO 2 % (0-6); Hemoglobin 8.2 g/dL (11.5-16.0); IMMATURE GRAN ABSOLUTE AUTO 0.03 K/mm3 (0.00-0.10); IMMATURE GRAN PERCENT AUTO 0 % (0-1); LYMPHOCYTES ABSOLUTE AUTO 3.06 K/mm3 (0.84-5.20); LYMPHOCYTES PERCENT AUTO 38 % (21-46); MONOCYTES ABSOLUTE AUTO 0.63 K/mm3 (0.16-1.47); MONOCYTES PERCENT AUTO 8 % (4-13); Mean Corpuscular HGB 30.8 pg (26.0-34.0); Mean Corpuscular HGB Conc 34.2 g/dL (31.5-36.5); Mean Corpuscular Volume 90 fL (80-100); Mean Platelet Volume 8.9 fL (9.1-12.4); NEUTROPHILS ABSOLUTE AUTO 4.23 K/mm3 (1.96-9.15); NEUTROPHILS PERCENT AUTO 52 % (41-73); Platelet Count 331 K/mm3 (150-400); RDW Standard Deviation 45.5 fL (35.1-46.3); Red Blood Cell Count 2.66 M/mm3 (3.80-5.20)
[2022-05-17] MEDS ORDERED: Percocet 5-3251 EACH PO ×2 (10:51)
--- NOTE | 2022-05-17 15:12 | NUR ---
DISCHARGE NOTE: PATIENT AND PATIENTS WERE EDUCATED ON DISCHARGE INSTRUCTIONS. BOTH VERBALIZED UNDERSTANDING OF INSTRUCTIONS AND HAD NO FURTHER QUESTIONS AT THIS TIME. IVS WERE TAKEN OUT AND WNL. ALREADY TOOK THE HARD PERSCRIPTIONS TO THEIR PREFERRED PHARMACY TO GET FILLED. PAIN IS MANAGED WITH ORAL PAIN MEDICATIONS. PATIENT IS TOLERATING PO INTAKE AND IS VOIDING. SHE IS DRESSED AND HAS ITEMS IN THE ROOM GATHERED. SHE IS BEING WHEELCHAIRED OUT TO HER HUSBANDS CAR TO BE TAKEN HOME.
== END 2022-05-17 15:16 | disposition home or self-care (01) ==
LOC: ER 06:03 → SURS 06:04 → ERHOLD 10:59 → ER 10:59 → SURS 14:02 → ERHOLD 14:02 → ER 05-17 14:59 → SURS 05-17 14:59
PROVIDERS: Emergency Medicine; ADMIT Obstetrics & Gynecology
PROC: 10D17ZZ Extraction of Products of Conception, Retained, Via Natural or Artificial Opening (ICD-10-PCS; principal; 2022-05-16 08:00)
DX: O72.3 Postpartum coagulation defects (principal); Z91.013 Allergy to seafood
CPT/HCPCS: 36415; 36430; 80047; 80048; 85014; 85025; 86850; 86900; 86901; 86923; 88305; 93005; 93010; 99285-25; A9270; J0690; J1100; J1650; J1885; J2250; J2405; J2704; J3010; J7030; J7120; P9016

== ENCOUNTER 2022-06-01 07:08 | Day surgery (SDC) | payer OTHER ==
[~2022-06-01] VITALS: Ht 167.6 cm; Wt 75.9 kg
[~2022-06-01 07:08] MED LIST changes: +Percocet 5-3251 EACH PO
[2022-06-01] MEDS ORDERED: METO10 (07:55)
--- NOTE | 2022-06-01 09:07 | NUR ---
06/01/22 0907 Farheen Falk ABDOMEN PREPPED BY [facility].TL[facility]. 0.15ML OF EPI 1MG/ML ADDED TO 30ML OF ROPIVICAINE 0.5% TO CREATE A LOCAL SOLUTION OF ROPIVICAINE 0.5% WITH EPI 1:200,000.
--- NOTE | 2022-06-01 11:29 | NUR ---
06/01/22 1129 Gregory Carrington 1020 phenergan 6.25 iv was helpful
== END 2022-06-01 11:00 | disposition home or self-care (01) ==
LOC: ORSCSDS 07:08
PROVIDERS: Obstetrics & Gynecology
PROC: 0U5B8ZZ Destruction of Endometrium, Via Natural or Artificial Opening Endoscopic (ICD-10-PCS; principal; 2022-06-01 08:30)
PROC: 0DBU4ZX Excision of Omentum, Percutaneous Endoscopic Approach, Diagnostic (ICD-10-PCS; principal; 2022-06-01 08:30)
PROC: 0UT74ZZ Resection of Bilateral Fallopian Tubes, Percutaneous Endoscopic Approach (ICD-10-PCS; principal; 2022-06-01 08:30)
DX: Z30.2 Encounter for sterilization (principal); N92.0 Excessive and frequent menstruation with regular cycle; O72.3 Postpartum coagulation defects; Z86.73 Personal history of transient ischemic attack (TIA), and cerebral infarction without residual deficits; Z79.899 Other long term (current) drug therapy; Z79.01 Long term (current) use of anticoagulants
CPT/HCPCS: 86850; 86900; 86901; 88302; 88305; J0171; J0690; J1100; J2250; J2405; J2550; J2704; J2710; J2765; J2795; J3010; J7120

== ENCOUNTER 2024-09-14 01:48 | Observation (INO) | payer OTHER ==
[~2024-09-14] VITALS: Ht 167.6 cm; Wt 67.1 kg
[~2024-09-14 01:48] MED LIST changes: +METO10
[2024-09-14] MEDS ORDERED: Ondansetron HCl 2 MG / ML 2ML Vial IV PRN ×3 (02:10→11:05)
[2024-09-14] MEDS ORDERED: NS 1,000 ML IV SCH ×3 (02:20→11:05)
[2024-09-14] MEDS ORDERED: FentaNYL Citrate 50 MCG/ML 2 ML Injection IV ONE ×2 (02:20→02:55)
[2024-09-14 02:30] LABS: BASOPHILS ABSOLUTE AUTO 0.08 K/mm3 (0.00-0.23); BASOPHILS PERCENT AUTO 1 % (0-2); EOSINOPHILS ABSOLUTE AUTO 0.05 K/mm3 (0.00-0.68); EOSINOPHILS PERCENT AUTO 0 % (0-6); Hematocrit 39.1 % (33.0-51.0); Hemoglobin 13.6 g/dL (11.5-16.0); IMMATURE GRAN ABSOLUTE AUTO 0.03 K/mm3 (0.00-0.10); IMMATURE GRAN PERCENT AUTO 0 % (0-1); LYMPHOCYTES ABSOLUTE AUTO 3.68 K/mm3 (0.84-5.20); LYMPHOCYTES PERCENT AUTO 27 % (21-46); MONOCYTES PERCENT AUTO 7 % (4-13); Mean Corpuscular HGB 31.1 pg (26.0-34.0); Mean Corpuscular HGB Conc 34.8 g/dL (31.5-36.5); Mean Corpuscular Volume 90 fL (80-100); NEUTROPHILS ABSOLUTE AUTO 8.81 K/mm3 (1.96-9.15); NEUTROPHILS PERCENT AUTO 65 % (41-73); Platelet Count 433 K/mm3 (150-400); RDW Coefficient Variation 11.6 % (11.7-14.2); RDW Standard Deviation 37.8 fL (35.1-46.3); Red Blood Cell Count 4.37 M/mm3 (3.80-5.20); White Blood Cell Count 13.65 K/mm3 (4.00-11.30)
[2024-09-14 02:34] LABS: Albumin, Blood 4.4 g/dL (3.4-5.0); Albumin/Globulin Ratio 1.4 (0.8-1.8); Bilirubin, Total 0.3 mg/dL (0.1-1.0); Bun/Creatinine Ratio 13.8 (12.0-20.0); Calcium, Blood 8.8 mg/dL (8.5-10.1); Creatinine, Blood 0.72 mg/dL (0.40-1.00); Globulin, Blood 3.2 g/dL (2.2-4.0); Potassium, Blood 3.2 mmol/L (3.5-5.5); Total Protein, Blood 7.6 g/dL (6.4-8.2)
[2024-09-14] MEDS ORDERED: XARELTO20 MG PO (02:36)
[2024-09-14] MEDS ORDERED: Ondansetron HCl 2 MG / ML 2ML Vial IV ONE (03:40)
[2024-09-14] MEDS ORDERED: HYDROmorphone HCl/Pf 1MG SYR IV ONE (03:40)
[2024-09-14] MEDS ORDERED: CefTRIAXone Sodium 1,000 MG in NS 50 ML IV ONE (03:45)
[2024-09-14] MEDS ORDERED: MetroNIDAZOLE 500MG/NS 100 ml 100 ML IV ONE (03:45)
[2024-09-14] MEDS ORDERED: HYDROmorphone HCl/Pf 1MG SYR IV PRN (04:00)
[2024-09-14] MEDS ORDERED: Lactated Ringer's 1,000 ML IV SCH (04:00)
--- NOTE | 2024-09-14 14:04 | NUR ---
ADMIT REPORT RECEIVED FROM ER. PT ARRIVED VIA W/C ACCOMPANIED BY RN. PT ALERT AND ORIENTED. DENIED PAIN/NAUSEA AT THIS TIME. FAMILY AT BEDSIDE. CARE ONGOING.
[2024-09-14 14:18] VITALS: BP 119/87
[2024-09-14 16:40] LABS: International Normalized Ratio 1.2; Prothrombin Time Results 12.7 Sec (9.7-11.5)
[2024-09-14] MEDS ORDERED: Heparin Sodium,Porcine/0.5 NS 500 ML IV SCH (17:10)
[2024-09-14] MEDS ORDERED: Heparin Sodium 5000 Units/ML 1ML MDV IV ONE (17:10)
[2024-09-14 19:10] VITALS: BP 106/74
[2024-09-15] VITALS (13 sets, daily range): BP systolic 96–127; BP diastolic 60–83
[2024-09-15] MEDS ORDERED: Dose Adjust by Pharmacy XX STA ×2 (00:17→06:52)
--- NOTE | 2024-09-15 05:58 | NUR ---
SHIFT SUMMARY VSS. PT SLEPT WELL T/O THE NIGHT. HEP GTT MANAGED PER PHARMACY. PPT HAS BEEN NPO SINCE 0000 FOR SURGERY. REQUIRED X1 DOSE OF PAIN MEDICATION AND NAUSEA MEDICATION. ENDORSES RUQ DEEP AND CRAMPING LIKE PAIN. OVERALL NO ACUTE EVENTS NOTED.
[2024-09-15 07:25] LABS: BASOPHILS ABSOLUTE AUTO 0.09 K/mm3 (0.00-0.23); BASOPHILS PERCENT AUTO 1 % (0-2); EOSINOPHILS ABSOLUTE AUTO 0.08 K/mm3 (0.00-0.68); EOSINOPHILS PERCENT AUTO 1 % (0-6); Hematocrit 37.3 % (33.0-51.0); Hemoglobin 12.6 g/dL (11.5-16.0); IMMATURE GRAN ABSOLUTE AUTO 0.01 K/mm3 (0.00-0.10); IMMATURE GRAN PERCENT AUTO 0 % (0-1); LYMPHOCYTES ABSOLUTE AUTO 4.02 K/mm3 (0.84-5.20); LYMPHOCYTES PERCENT AUTO 51 % (21-46); MONOCYTES ABSOLUTE AUTO 0.71 K/mm3 (0.16-1.47); MONOCYTES PERCENT AUTO 9 % (4-13); Mean Corpuscular HGB 31.2 pg (26.0-34.0); Mean Corpuscular HGB Conc 33.8 g/dL (31.5-36.5); Mean Corpuscular Volume 92 fL (80-100); Mean Platelet Volume 9.2 fL (9.1-12.4); NEUTROPHILS ABSOLUTE AUTO 2.94 K/mm3 (1.96-9.15); NEUTROPHILS PERCENT AUTO 38 % (41-73); Platelet Count 335 K/mm3 (150-400); RDW Coefficient Variation 11.9 % (11.7-14.2); Red Blood Cell Count 4.04 M/mm3 (3.80-5.20); White Blood Cell Count 7.85 K/mm3 (4.00-11.30)
--- NOTE | 2024-09-15 07:35 | NUR ---
HEPARIN DRIP STOPPED AT THIS TIME PER MD ORDER.
[2024-09-15 07:40] LABS: Bun/Creatinine Ratio 8.8 (12.0-20.0); Calcium, Blood 8.3 mg/dL (8.5-10.1); Creatinine, Blood 0.68 mg/dL (0.40-1.00); Potassium, Blood 3.5 mmol/L (3.5-5.5)
[2024-09-15 11:33] LABS: Hematocrit 37.7 % (33.0-51.0); Hemoglobin 12.9 g/dL (11.5-16.0); Mean Platelet Volume 9.3 fL (9.1-12.4); Platelet Count 284 K/mm3 (150-400)
[2024-09-15] MEDS ORDERED: Lactated Ringer's 1,000 ML IV SCH (13:00)
[2024-09-15] MEDS ORDERED: Indocyanine Green 25 MG Vial IV SCH (13:10)
--- NOTE | 2024-09-15 13:14 | NUR ---
PT TO PROCEDURE AT THIS TIME.
--- NOTE | 2024-09-15 14:15 | NUR ---
PT TO DAY SURGERY FROM SURGICAL FLOOR. PT REMOVED JEWELRY AND GAVE TO SPOUSE AT BEDSIDE. PAS LEFT IN PLACE AND RUNNING CONTINUOUSLY. REPORT GIVEN TO RAY ESPINAL.
[2024-09-15] MEDS ORDERED: CeFAZolin Sodium 2,000 MG in NS 100 ML IV SCH (14:30)
[2024-09-15] MEDS ORDERED: Bupivacaine 0.5% HCl 5 MG/ML 30MLVIAL ONE (14:59)
[2024-09-15] MEDS ORDERED: propofoL 20 ML IV ONE (15:03)
[2024-09-15] MEDS ORDERED: Lidocaine HCl 2% 20 ML MDV ONE (15:03)
[2024-09-15] MEDS ORDERED: Rocuronium Bromide 10 MG/ML 5ML Injection IV ONE (15:03)
[2024-09-15] MEDS ORDERED: FentaNYL Citrate 50 MCG/ML 2 ML Injection ONE (15:03)
[2024-09-15] MEDS ORDERED: Scopolamine Hydrobromide Patch TOP ONE (15:15)
--- NOTE | 2024-09-15 15:24 | NUR ---
SCOPE PATCH PLACED, PT TO OR BY OM. PT WAS EDUCATED ON SCOP PATCH (WASH HANDS TAKING OFF).
[2024-09-15] MEDS ORDERED: Dexamethasone Sod Phos 10 MG/ML 1ML VIAL ONE (15:32)
[2024-09-15] MEDS ORDERED: Ondansetron HCl 2 MG / ML 2ML Vial ONE (15:32)
[2024-09-15] MEDS ORDERED: HYDROmorphone HCl/Pf 1MG SYR IV PRN ×2 (15:45)
[2024-09-15] MEDS ORDERED: FentaNYL Citrate 50 MCG/ML 2 ML Injection IV PRN ×2 (15:45)
[2024-09-15] MEDS ORDERED: Albuterol 2.5 MG/3 ML VIAL INH PRN (15:50)
[2024-09-15] MEDS ORDERED: Droperidol 5 mg/2 ml Vial IV PRN (15:50)
[2024-09-15] MEDS ORDERED: Sugammadex Sodium 200 MG/2ML SDV (100 MG/ML) ONE (16:33)
[2024-09-15] MEDS ORDERED: OxyCODONE HCL 5 MG TAB PO PRN (17:05)
[2024-09-15] MEDS ORDERED: Ketorolac Tromethamine 15mg Vial IV PRN (17:15)
[2024-09-15] MEDS ORDERED: OXYC5 PO (17:17)
--- NOTE | 2024-09-15 17:50 | NUR ---
SHIFT SUMMARY/ARRIVAL PT ARRIVED FROM PACU VIA MO S/P LAP AKOSUA. TRANSFERED TO BED WITH SLIDE SHEET. PT LAYING ON R SIDE, REPORTS PAIN AT 8/10. "BLOATED" FEELING. MEDICATION PER EMAR. DENIES NAUSEA AT THIS TIME. TOLERATING SIPS OF WATER. FAMILY AT BEDSIDE. LAP SITES CDI WITH WOUND GLUE. PT AWAKE AND OREINTED, DENIES NEED. SPOUSE HAS PICKED UP MEDICATIONS ALREADY.
[2024-09-16 00:02] VITALS: BP 120/72
--- NOTE | 2024-09-16 04:32 | NUR ---
SHIFT SUMMARY POD 1 LAP AKOSUA. NO ACUTE CHANGES OVERNIGHT. VSS. TOLERATING ORALS. DENIES N/V. LAP SITES x4 c WOUND GLUE MANDI. PT REPORTS PASSING FLATUS, NO BM. VOIDING. AMB IND. PT REPORTS PAIN TOLERABLE, MEDICATED PER EMAR. ANCITICPATES D/C LATER TODAY. CALL LIGHT IN REACH, BED IN LOWEST POSITION, WILL REPORT TO DAY RN.
[2024-09-16 04:36] VITALS: BP 106/74
[2024-09-16 06:57] LABS: BASOPHILS ABSOLUTE AUTO 0.05 K/mm3 (0.00-0.23); BASOPHILS PERCENT AUTO 0 % (0-2); EOSINOPHILS ABSOLUTE AUTO 0.01 K/mm3 (0.00-0.68); EOSINOPHILS PERCENT AUTO 0 % (0-6); Hematocrit 35.6 % (33.0-51.0); Hemoglobin 12.2 g/dL (11.5-16.0); IMMATURE GRAN ABSOLUTE AUTO 0.04 K/mm3 (0.00-0.10); IMMATURE GRAN PERCENT AUTO 0 % (0-1); LYMPHOCYTES ABSOLUTE AUTO 2.45 K/mm3 (0.84-5.20); LYMPHOCYTES PERCENT AUTO 20 % (21-46); MONOCYTES ABSOLUTE AUTO 1.19 K/mm3 (0.16-1.47); MONOCYTES PERCENT AUTO 10 % (4-13); Mean Corpuscular HGB 30.8 pg (26.0-34.0); Mean Corpuscular HGB Conc 34.3 g/dL (31.5-36.5); Mean Corpuscular Volume 90 fL (80-100); Mean Platelet Volume 8.7 fL (9.1-12.4); NEUTROPHILS ABSOLUTE AUTO 8.25 K/mm3 (1.96-9.15); NEUTROPHILS PERCENT AUTO 69 % (41-73); Platelet Count 364 K/mm3 (150-400); RDW Coefficient Variation 11.3 % (11.7-14.2); RDW Standard Deviation 37.1 fL (35.1-46.3); Red Blood Cell Count 3.96 M/mm3 (3.80-5.20); White Blood Cell Count 11.99 K/mm3 (4.00-11.30)
[2024-09-16 07:10] VITALS: BP 110/74
--- NOTE | 2024-09-16 07:46 | NUR ---
DISCHARGE POD 1 LAP APPY PT LEFT VIA WHEELCHAIR. LAP SITES REMAIN CDI. NO REDNESS NOTED. IV REMOVED WNL. TOLERATING DIET, NO NAUSEA. PAIN WELL CONTROLLED PER REPORT. AMBULATING WELL. ALL INSTRUCTIONS GONE OVER WITH PATIENT. PT ELECTS TO START BLOOD THINNER ONCE SHE GETS HOME.
[2024-09-16] MEDS ORDERED: Rivaroxaban 10 MG Tab PO SCH (09:00)
== END 2024-09-16 07:46 | disposition home or self-care (01) ==
LOC: ER 01:48 → ERHOLD 01:57 → SURS 01:57 → ERHOLD 01:57 → ER 06:10 → ERHOLD 06:10 → SURS 14:07
PROVIDERS: Internal Medicine; Student in an Organized Health Care Education/Training Program; Surgery; ADMIT Student in an Organized Health Care Education/Training Program
PROC: 0FT44ZZ Resection of Gallbladder, Percutaneous Endoscopic Approach (ICD-10-PCS; principal; 2024-09-15 14:00)
PROC: 8E0W4CZ Robotic Assisted Procedure of Trunk Region, Percutaneous Endoscopic Approach (ICD-10-PCS; principal; 2024-09-15 14:00)
DX: K80.12 Calculus of gallbladder with acute and chronic cholecystitis without obstruction (principal); K21.9 Gastro-esophageal reflux disease without esophagitis; Z91.013 Allergy to seafood
CPT/HCPCS: 36415; 76705; 80048; 80053; 83690; 85014; 85018; 85025; 85049; 85610; 85730; 88304; 96374; 96375; 96376; 99285-25; A9270; G0378; J0690; J0696; J1100; J1171; J1644; J1885; J2405; J2704; J3010; J7030; J7120